=== PATIENT | male | born 2000 | race Caucasian/White ===

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

== ENCOUNTER 2022-07-03 18:56 | Emergency (ER) | payer OTHER, BC ==
[~2022-07-03] VITALS: Ht 154.9 cm; Wt 52.8 kg
[~2022-07-03 18:56] MED LIST: PAXIL30 MG PO; PREVACID30 M3 PO; ULTRAM50 M1 PO; XANAX0.5 MG PO
[2022-07-03] MEDS ORDERED: AMOXICILLIN500 MG PO (21:17)
[2022-07-03 22:39] VITALS: BP 110/62
== END 2022-07-03 22:40 | disposition home or self-care (01) | DRG 605 ==
LOC: ED 18:56
DX: S90.32XA Contusion of left foot, initial encounter (principal); S90.812A Abrasion, left foot, initial encounter; F41.9 Anxiety disorder, unspecified; W20.8XXA Other cause of strike by thrown, projected or falling object, initial encounter; Y92.89 Other specified places as the place of occurrence of the external cause; Y99.0 Civilian activity done for income or pay